=== PATIENT | female | born 1995 | race Two or more races ===

== ENCOUNTER 2020-04-19 08:29 | Emergency (ER) | payer MEDICAID, OTHER ==
[~2020-04-19] VITALS: Ht 162.6 cm; Wt 77.1 kg
[2020-04-19 08:53] VITALS: BP 147/96
== END 2020-04-19 10:07 | disposition home or self-care (01) ==
LOC: ER 08:29
DX: S33.5XXA Sprain of ligaments of lumbar spine, initial encounter (principal); S13.9XXA Sprain of joints and ligaments of unspecified parts of neck, initial encounter; S80.11XA Contusion of right lower leg, initial encounter; I10 Essential (primary) hypertension; V43.52XA Car driver injured in collision with other type car in traffic accident, initial encounter; Y93.89 Activity, other specified; Y92.89 Other specified places as the place of occurrence of the external cause; Y99.8 Other external cause status
CPT/HCPCS: 72040; 72100

== ENCOUNTER 2024-07-12 18:59 | Inpatient (IN) | payer MEDICAID ==
[~2024-07-12] VITALS: Ht 162.6 cm; Wt 69.1 kg
[2024-07-12] MEDS: HYDROcodone-ACET 10/325MG TAB PO ONE (20:28)
--- NOTE | 2024-07-12 20:30 | ED.PDOC ---
Back pain HPI HPI Comments PT BIBA CC LEFT ANKLE PAIN. PT STATED SHE FELL WHILE ROLLER SKATING AND LANDED WRONG ON HER ANKLE. PT HAS HX OF SPRAINING LEFT ANKLE AMBULATORY D/T INJURY, - LOC, - BLOOD THINNERS. PER EMS, PTs LEFT FOOT HAD NOTABLE BRUISING, NO NOTABLE DEFORMITY CURRENTLY SPLINTED. PT WAS GIVEN 4MG PO ZOFRAN ODT EN ROUTE. NO HX, MEDS, OR SURGERIES REPORTED. DENIES NUMBNESS AND WEAKNESS Chief Complaint: Lower Extremity Time Seen by MD: 19:07 Reviewed Notes: Nurses Notes, Medications, Allergies Allergies: Coded Allergies: Cephalexin (Verified Allergy, Unknown, 04/19/20) Information Source: Patient Mode of Arrival: EMS Past Medical History PAST MEDICAL HISTORY: HTN Surgical History: Denies all surgeries Social History Smoker: Non-Smoker Alcohol: Denies ETOH Use Drugs: Denies Drug Use Lives In: Home Constitutional: denies: chills, diaphoresis, fatigue, fever, malaise, sweats, weakness, others EENTM: denies: blurred vision, double vision, ear bleeding, ear discharge, ear drainage, ear pain, ear ringing, eye pain, eye redness, hearing loss, mouth pain, mouth swelling, nasal discharge, nose bleeding, nose congestion, nose pain, photophobia, tearing, throat pain, throat swelling, voice changes, others Respiratory: denies: cough, hemoptysis, orthopnea, SOB at rest, shortness of breath, SOB with excertion, stridor, wheezing, others Cardiovascular: denies: chest pain, dizzy spells, diaphoresis, Dyspnea on exertion, edema, irregular heart beat, left arm pain, lightheadedness, palpita tions, PND, syncope, others Gastrointestinal: denies: abdomen distended, abdominal pain, blood streaked rachel wels, constipated, diarrhea, dysphagia, difficulty swallowing, hematemesis, melena, nausea, poor appetite, poor fluid intake, rectal bleeding, rectal pain, vomiting, others Genitourinary: denies: abnormal vagina bleeding, burning, dyspareunia, dysuria, flank pain, frequency, hematuria, incontinence, pain, , vagina discharge, urgency, others Neurological: denies: dizziness, fainting, headache, left sided numbness, left sided weakness, numbness, paresthesia, pre-existing deficit, right sided numbness, right sided weakness, seizure, speech problems, tingling, tremors, weakness, others Musculoskeletal: reports: joint pain, joint swelling; denies: back pain, gout, muscle pain, muscle stiffness, neck pain, others Integumetry: reports: bruises; denies: change in color, change in hair/nails, dryness, laceration, lesions, lumps, rash, wounds, others Allergic/Immunocompromised: denies: Difficulty Healing, Frequent Infections, Hives, Itching, others Hematologic/Lymphatic: denies: anemia, blood clots, easy bleeding, easy bruising, swollen glands, others Endocrine: denies: excessive hunger, excessive sweating, excessive thirst, excessive urination, flushing, intolerance to cold, intolerance to heat, unexplained weight gain, unexplained weight loss, others Psychiatric: denies: anxiety, bipolar disorder, depression, hopeless, panic disorder, schizophrenia, sleepless, suicidal, others Physical Exam General Appearance: No Apparent Distress, Normal HEENT: Pharynx Normal Neck: Full Range of Motion, Non-Tender Respiratory: Lungs Clear, No Respiratory Distress, Normal Breath Sounds Cardiovascular: No Edema, No JVD, No Murmur, No Gallop, Normal Peripheral Pulses, Regular Rate/Rhythm Breast Exam: Deferred Gastrointestinal: No Organomegaly, Non Tender, No Pulsatile Mass, Normal Bowel Sounds, Soft Genitalia: Deferred Pelvic: Deferred Rectal: Deferred Extremities: Normal capillary refill, Normal inspection, Normal range of motion, Non-tender, No pedal edema Musculoskeletal : Location: Left Extremity Location: Ankle (MODERATE EDEMA MEDIAL MALLEOLUS SEVERE DISCOMFORT WITH RANGE OF MOTION. STRENGTH SENSORY MOTION INTACT. POSITIVE CAP REFILL LESS THAN 3 SECONDS POSITIVE PEDAL PULSE) Apperance: Normal Neurologic: Alert, cell attendant II-XII nml as Tested, No Motor Deficits, Normal Affect, Normal Mood, No Sensory Deficits Cerebellar Function: Normal Reflexes: Normal Skin: Dry, Normal Color, Warm Lymphatic: No Adenopathy Was a procedure done? Was a procedure done?: No Back Pain Differential Dx Differential Diagnosis: Fracture, Musculoskeletal Pain, Strain X-Ray, Labs, Meds, VS Vital Signs Date Time Temp Pulse Resp B/P (MAP) Pulse Ox O2 Delivery O2 Flow Rate FiO2 07/12/24 20:58 62 14 133/74 (93) 98 07/12/24 19:49 78 16 98 Room Air 07/12/24 19:10 98.1 98 16 110/60 (77) 98 98.1 07/12/24 19:10 98.1 78 16 110/60 (77) 98 98.1 Current Medications Medications (Trade) Dose Ordered Sig/Jacquelin Route Start Time Stop Time Status Last Admin Acetaminophen/ Hydrocodone Bitart ([place] 10/325MG Tab) 1 tab ONCE ONCE PO 07/12/24 20:30 07/12/24 20:31 DC 07/12/24 20:28 X-Ray, Labs, Meds, VS Comment CT LEFT ANKLE FINDINGS / IMPRESSION: There is dorsally displaced oblique Stauffer C fracture of distal fibula as well as displaced fracture of posterior malleolus. There is disruption of the ankle mortise with considerable lateral displacement of the talus with respect to the distal tibia. NORCO 10 MG P.O. GIVEN FOR THE PAIN AND ICE APPLIED PATIENT PLACED IN POSTERIOR LEG SPLINT TOLERATED WELL POSITIVE CSM BEFORE AND AFTER PROCEDURE. PEER-PEER REPORT WITH ORTHO SURGEON DR. CARRION ACCEPTED PATIENT A SURGICAL PATIENT FOR ADMISSION, PAIN CONTROL AND CONSULT IN THE MORNING FOR SURGERY. Time of 1ST Reevaluation: 19:30 Reevaluation 1ST: Unchanged Time of 2ND Reevaluation: 22:18 Reevaluation 2ND: Improved Patient Education/Counseling: Diagnosis, Treatment, Prognosis, Need For Follow Up Family Education/Counseling: No Family Present Departure 1 Departure Time of Disposition: 21:06 Impression: Primary Impression: Fracture of fibula, distal Qualified Codes: S82.831A - Other fracture of upper and lower end of right fibula, initial encounter for closed fracture Additional Impressions: Malleolar fracture Qualified Codes: S82.891A - Other fracture of right lower leg, initial encou nter for closed fracture Intractable pain Disposition: ADMITTED INPATIENT Condition: Stable Discharged With: Self Critical Care Note Critical Care Time?: No Stability Stability form required: DHARMESH Edmonds July 12, 2024 20:30
--- NOTE | 2024-07-12 20:39 | DVH ---
CLINICAL INDICATION: injury/pain TECHNIQUE: XY L ANKLE 3 VIEW Comparison: None FINDINGS / IMPRESSION: There is dorsally displaced oblique Stauffer C fracture of distal fibula as well as displaced fracture o f posterior malleolus. There is disruption of the ankle mortise with considerable lateral displaceme nt of the talus with respect to the distal tibia.
[2024-07-12] MEDS ORDERED: NITROGLYCERIN 0.4 MG SL TAB SL PRN (22:15)
[2024-07-12] MEDS ORDERED: MORPHINE SULFATE INJ 2 MG/ml SYRG IV PRN (22:15)
[2024-07-12] MEDS ORDERED: ACETAMINOPHEN 325 MG TAB PO PRN (22:15)
--- NOTE | 2024-07-12 22:16 | DVHHP2 ---
History of Present Illness Reason for Visit: Fracture of fibula, distal History of Present Illness Patient is a 29-year-old female with past medical history of hypertension who presented to [facility] ED with complaint of left ankle pain. Patient reports she landing on her left ankle with sustained injury. Patient has history of spraining left ankle, left foot had notable bruising, no deformity. Patient was seen and evaluated in the ED, laboratory data shows WBC 8.4, platelets 309, sodium 140, potassium 4.6, BUN 7, creatinine 0.90, glucose 102, blood pressure 133/74, heart rate 62, temperature 98.1 F, O2 saturation 98% on room air. Left ankle x-ray revealing dorsally displaced oblique Stauffer C fracture of distal fibula as well as displaced fracture of posterior malleolus; there is disruption of the ankle mortise with considerable lateral displacement of the talus with respect to the distal tibia. Please see medication orders section in the computer. On my assessment, patient denied chest pain, no headache, no dizziness, no diaphoresis, no numbness, weakness, no shortness of breath, no nausea, no vomiting, no fever, no chills. Patient was admitted for further evaluation and medical management. Past Medical History Hypertension Past Surgical History Denies all surgeries Family History Reviewed, noncontributory to the management of this case. Past Social History The patient lives at home, denies smoking, alcohol or illicit drugs abuse. Review of Systems Constitutional: No: Fever, Chills, Sweats, Weakness, Malaise, Other Eyes: No: Pain, Vision change, Conjunctivae inflammation, Eyelid inflammation, Other, Redness ENT: No: Ear pain, Ear discharge, Nose pain, Nose discharge, Nose congestion, Mouth pain, Mouth swelling, Throat pain, Throat swelling, Other Respiratory: No: Cough, Dry, Shortness of breath, SOB with excertion, Wheezing, Hemoptysis, Pleuritic Pain, Sputum, Wheezing, Other Cardiovascular: No: Chest Pain, Palpitations, Orthopnea, Paroxysmal Noc. Dyspnea, Edema, Lt Headedness, Other Gastrointestinal: No: Nausea, Vomiting, Abdominal Pain, Diarrhea, Constipation, Melena, Hematochezia, Other Genitourinary: No Dysuria, No Frequency, No Incontinence, No Hematuria, No Retention, No Other Musculoskeletal: other (joint pain, joint swelling.); No: neck pain, shoulder pain, arm pain, back pain, hand pain, leg pain, foot pain Skin: Bruising (Left ankle); No: Rash, Lesions, Jaundice, Other Neurological: No: Weakness, Numbness, Incoordination, Change in speech, Confusion, Seizures, Other Allergies: Coded Allergies: Cephalexin (Verified Allergy, Unknown, 04/19/20) Exam Vital Signs Vital Signs Date Time Temp Pulse Resp B/P (MAP) Pulse Ox O2 Delivery O2 Flow Rate FiO2 07/12/24 20:58 62 14 133/74 (93) 98 07/12/24 19:49 Room Air 07/12/24 19:10 98.1 98.1 General Appearance: Alert, Oriented X3, Cooperative, No acute distress HEENT: Atraumatic, PERRLA, EOMI, Mucous membr. moist/pink Respiratory: Clear to auscultation, Normal air movement Cardiovascular: Regular rate, Normal S1, Normal S2, No murmurs Abdominal: Normal bowel sounds, Soft, No tenderness, No hepatospenomegaly, No masses Extremities: No clubbing, No cyanosis, No edema, Normal pulses, Other (Left ankle swelling/tenderness) Skin: No rashes, No breakdown, No significant lesion Neuro: Normal speech, Normal tone, Sensation intact, Cranial nerves 3-12 NL, Reflexes 2+, Other (Unsteady gait) Psych/Mental Status: Mental status NL, Mood NL Labs/Xrays PATIENT: BEVERLEY TELLO ACCT: [id number] UNIT: [id number] : 1995 LOC: ER ROOM / BED: / AGE / SEX: 29 / F ADM STATUS: REG ER SERVICE 33 ORDERING PHYSICIAN: DHARMESH JACINTO PROCEDURE(s): LANKL - L ANKLE 3 VIEW REASON: injury/pain ORDER NUMBER(s): [id number], ACCESSION NUMBER(s): [id number] CLINICAL INDICATION: injury/pain TECHNIQUE: XY L ANKLE 3 VIEW Comparison: None FINDINGS/IMPRESSION: There is dorsally displaced oblique Stauffer C fracture of distal fibula as well as displaced fracture of posterior malleolus. There is disruption of the ankle mortise with considerable lateral displacement of the talus with respect to the distal tibia. Assessment/Plan Assessment/Plan Fracture of fibula, distal Other fracture of upper and lower end of right fibula, initial encounter for closed fracture Intractable pain Malleolar fracture Other fracture of right lower leg, initial encounter for closed fracture Plan 1. Admit to telemetry unit 2. Breathing treatment 3. Pain control management 4. Management of fluids and electrolytes 5. Consultation for orthopedic 6. Diagnostic tests left ankle x-ray 7. DVT prophylaxis-on Lovenox 8. Repeat labs CBC, CMP in a.m. 9. Continue with current medical management 10. Treatment plan discussed with patient and RN. Patient verbalized understanding. Plan discussed with: Patient, Other (RN) My Orders Orders - KATHY HECK DNP Procedure Category Date Status Time * Orthopedic Consult CONS 07/12/24 Verified 22:08 Complete Blood Count LAB 07/12/24 Verified 22:08 Basic Metabolic Panel LAB 07/12/24 Verified 22:08 Problem List: (1) Fracture of fibula, distal (2) Other fracture of upper and lower end of right fibula, initial encounter for closed fracture (3) Intractable pain (4) Malleolar fracture (5) Other fracture of right lower leg, initial encounter for closed fracture Date of Service: July 12, 2024 Billing Provider: KATHY HECK DNP Common Visit Codes: [id number] INP/OBS CARE (HIGH) KATHY HECK DNP July 12, 2024 22:16
[2024-07-12 22:48] LABS: Potassium 4.6 mmol/L (3.5-5.1); Sodium 140 mmol/L (136-145)
[2024-07-12 22:49] LABS: Anion Gap 7 (5-15); Calcium 9.6 mg/dL (8.7-10.4); Carbon Dioxide 26 mmol/L (20-31)
[2024-07-12 22:51] LABS: Basophils # (auto) 0 10 ^3/uL (0-0.2); Basophils % (auto) 0.3 % (0.0-2.0); Eosinophils # (auto) 0 10 ^3/uL (0-0.8); Mean Corpuscular Hgb Conc. 32.2 g/dL (32.0-36.0); Monocytes # (auto) 0.3 10 ^3/uL (0-1.3)
[2024-07-12 22:53] LABS: Eosinophils % (auto) 0.2 % (0.0-7.0); Hematocrit 41.3 % (36.0-46.0); Hemoglobin 13.3 g/dL (12.2-16.2); Lymphocytes # (auto) 1.7 10 ^3/uL (0.4-5.4); Lymphocytes % (auto) 20.8 % (10.0-50.0); Mean Corpuscular Hemoglobin 24.3 pg (28.0-32.0); Mean Corpuscular Volume 75.5 fL (80.0-100.0); Monocytes % (auto) 3.4 % (0.0-12.0); Neutrophils # (auto) 6.3 10 ^3/uL (1.6-8.6); Neutrophils % (auto) 75.3 % (37.0-80.0); Nucleated Red Blood Cells % 0.1 %; Platelet Count (auto) 309 10^3/uL (140-450); Red Blood Cells 5.47 10^6/uL (4.0-5.20); Red Cell Distribution Width 13.2 % (11.8-14.3); White Blood Cell 8.4 10^3/uL (4.4-10.8)
[2024-07-12 22:54] LABS: BUN/Creatinine Ratio 7.8 (10.0-20.0); Glucose 102 mg/dL (74-106)
[2024-07-12 22:57] LABS: Blood Urea Nitrogen 7 mg/dL (9-23); Chloride 107 mmol/L (98-107)
[2024-07-13] VITALS (9 sets, daily range): BP systolic 121–140; BP diastolic 72–85; PULSE 57–84; RESP 16–20; TEMP 97.9–98.9; O2SAT 97–100
[2024-07-13] MEDS: MORPHINE SULFATE INJ 2 MG/ml SYRG IV PRN (01:25)
[2024-07-13] MEDS: SODIUM CHLORIDE 0.9% 1,000 ML IV SCH (01:26)
[2024-07-13 07:15] LABS: Basophils # (auto) 0 10 ^3/uL (0-0.2); Basophils % (auto) 0.4 % (0.0-2.0); Eosinophils # (auto) 0 10 ^3/uL (0-0.8); Eosinophils % (auto) 0.7 % (0.0-7.0); Hematocrit 38.8 % (36.0-46.0); Hemoglobin 12.4 g/dL (12.2-16.2); Lymphocytes # (auto) 2.5 10 ^3/uL (0.4-5.4); Lymphocytes % (auto) 44.9 % (10.0-50.0); Mean Corpuscular Hemoglobin 24.2 pg (28.0-32.0); Mean Corpuscular Volume 75.5 fL (80.0-100.0); Monocytes # (auto) 0.3 10 ^3/uL (0-1.3); Monocytes % (auto) 5.2 % (0.0-12.0); Neutrophils # (auto) 2.7 10 ^3/uL (1.6-8.6); Neutrophils % (auto) 48.8 % (37.0-80.0); Nucleated Red Blood Cells % 0.1 %; Platelet Count (auto) 283 10^3/uL (140-450); Red Blood Cells 5.14 10^6/uL (4.0-5.20); Red Cell Distribution Width 13.3 % (11.8-14.3); White Blood Cell 5.6 10^3/uL (4.4-10.8)
[2024-07-13 07:25] LABS: INR 1.04 (0.9-1.15); Partial Thromboplastin Time 27.3 SEC (24.5-34.5)
[2024-07-13 07:31] LABS: Albumin 4.2 g/dL (3.2-4.8); Alkaline Phosphatase 58 U/L (46-116); Anion Gap 8 (5-15); Bilirubin, Total 0.8 mg/dL (0.2-1.0); Calcium 9.6 mg/dL (8.7-10.4); Carbon Dioxide 26 mmol/L (20-31); Glucose 96 mg/dL (74-106); Potassium 4.1 mmol/L (3.5-5.1); Sodium 141 mmol/L (136-145); Total Protein 6.3 g/dL (5.7-8.2)
[2024-07-13 07:32] LABS: Alanine Aminotransferase < 9 U/L (7-40); Aspartate Aminotransferase 13 U/L (13-40); Blood Urea Nitrogen 7 mg/dL (9-23); Chloride 107 mmol/L (98-107)
[2024-07-13] MEDS: ENOXAPARIN SOD 40 MG/0.4 ML SYRINGE SC SCH (08:16)
--- NOTE | 2024-07-13 14:17 | DVHPN2 ---
Subjective The patient is seen and examined at bedside. Still complain of pain in the ankle area Reviewed: Care Plan, H&P, Labs, Medications, Previous Orders, Radiology Changes from previous H/P or p: No Changes Eyes: No Pain, No Vision change, No Conjunctivae inflammation, No Eyelid inflammation, No Other, No Redness ENT: No Ear pain, No Ear discharge, No Nose pain, No Nose discharge, No Nose congestion, No Mouth pain, No Mouth swelling, No Throat pain, No Throat swelling, No Other Cardiovascular: No Chest Pain, No Palpitations, No Orthopnea, No Paroxysmal Noc. Dyspnea, No Edema, No Lt Headedness, No Other Respiratory: No Cough, No Dry, No Shortness of breath, No SOB with excertion, No Wheezing, No Hemoptysis, No Pleuritic Pain, No Sputum, No Other Gastrointestinal: No Nausea, No Vomiting, No Abdominal Pain, No Diarrhea, No Constipation, No Melena, No Hematochezia, No Other Genitourinary: No Dysuria, No Frequency, No Incontinence, No Hematuria, No Retention, No Other Musculoskeletal: other (joint pain, joint swelling.); No neck pain, No shoulder pain, No arm pain, No back pain, No hand pain, No leg pain, No foot pain Skin: No Rash, No Lesions, No Jaundice; Bruising (Left ankle); No Other Objective Vitals Vital Signs Date Time Temp Pulse Resp B/P (MAP) Pulse Ox O2 Delivery O2 Flow Rate FiO2 07/13/24 12:30 71 20 132/79 07/13/24 12:30 98.9 98 98.9 07/13/24 01:36 Room Air* 0 21 Intake/Output Intake and Output 07/13/24 07:00 Intake Total 400 ml Balance 400 ml Intake Oral 400 ml # Voids 1 General Appearance: Alert, Oriented X3, Cooperative, No acute distress HEENT: Atraumatic, PERRLA, EOMI, Mucous membr. moist/pink Neck: Supple Lungs: Clear to auscultation, Normal air movement Cardiovascular: Regular rate, Normal S1, Normal S2, No murmurs, Gallops, Rubs Abdomen: Normal bowel sounds, Soft, No tenderness Musculoskeletal: Weak motor strength LLE Psych/Mental Status: Mental status NL Medications Current Medications Medications Dose Ordered Sig/Jacquelin Route Start Time Stop Time Status Last Admin Dose Admin Sodium Chloride 1,000 ml @ 60 mls/hr [id number] IV 07/12/24 22:15 07/13/24 13:00 60 MLS/HR Acetaminophen/ Hydrocodone Bitart 1 tab Q4HP PRN PO 07/12/24 22:15 Ondansetron HCl 4 mg Q4HP PRN IV 07/12/24 22:15 Docusate Sodium 100 mg BIDPRN PRN PO 07/12/24 22:15 Enoxaparin Sodium 40 mg DAILY SC 07/13/24 10:00 07/13/24 10:00 40 MG Acetaminophen 650 mg Q6HP PRN PO 07/12/24 22:15 Morphine Sulfate 2 mg Q4HPRN PRN IV 07/12/24 22:15 07/13/24 12:30 2 MG Nitroglycerin 0.4 mg Q5MINP PRN SL 07/12/24 22:15 Morphine Sulfate 2 mg Q30M PRN IV 07/12/24 22:15 Laboratory Results Laboratory Tests 07/13/24 06:33 Chemistry Test 07/12/24 22:26 07/13/24 06:33 Calcium Level 9.6 mg/dL (8.7-10.4) 9.6 mg/dL (8.7-10.4) Albumin 4.2 g/dL (3.2-4.8) Total Protein 6.3 g/dL (5.7-8.2) Coagulation Test 07/13/24 06:33 Prothrombin Time 11.0 sec (9.3-11.8) Prothrombin Time INR 1.04 (0.9-1.15) Activated Partial Thromboplast Time 27.3 SEC (24.5-34.5) LFT Test 07/13/24 06:33 Alanine Aminotransferase (ALT) < 9 U/L (7-40) Alkaline Phosphatase 58 U/L (46-116) Aspartate Amino Transferase (AST) 13 U/L (13-40) Total Bilirubin 0.8 mg/dL (0.2-1.0) Labs and/or images reviewed: Labs reviewed by me Assessment/Plan Assessment/Plan Fracture of left fibula, distal Other fracture of upper and lower end of left fibula, initial encounter for closed fracture Intractable pain Malleolar fracture Plan Continuing current management Waiting for orthopedic surgeon to see the patient. Continuing with [place] and morphine for pain control. This medical document was created using an electronic medical record system with [employer] direct computerized dictation system. Although this document has been carefully reviewed, there may still be some phonetic and typographical errors. These areas are purely typographical due to imperfections of the software programs, and do not reflect any compromise in the patient's medical care. Plan discussed with: Patient Date of Service: July 13, 2024 Billing Provider: JUNIOR ZHAO MD Common Visit Codes: [id number] INP/OBS CARE(HIGH) JUNIOR ZHAO MD July 13, 2024 14:17
[2024-07-13 20:37] LABS: Urine Bacteria FEW /hpf (None Seen); Urine Blood Negative /uL (Negative); Urine Clarity Clear (Clear); Urine Color Light-Yellow (Yellow); Urine Mucus FEW (None Seen); Urine Protein, UAD Negative (Negative); Urine Specific Gravity 1.014 (1.001-1.035); Urine Squamous Epithelial Cell FEW /hpf (<5); Urine Urobilinogen 2 mg/dL (Negative); Urine WBC 1 /HPF (0-5); Urine pH 6.5 (5.0-9.0)
[2024-07-14] VITALS (8 sets, daily range): BP systolic 112–137; BP diastolic 67–81; PULSE 61–80; RESP 14–19; TEMP 97.9–99.5; O2SAT 93–100
[2024-07-14] MEDS: BUPIVACAINE HCL 50 ML ONE (12:05)
--- NOTE | 2024-07-14 13:17 | DVHPN2 ---
Subjective The patient is seen and examined at bedside. Still complain of pain in the ankle area Reviewed: Care Plan, H&P, Labs, Medications, Previous Orders, Radiology Changes from previous H/P or p: No Changes Eyes: No Pain, No Vision change, No Conjunctivae inflammation, No Eyelid inflammation, No Other, No Redness ENT: No Ear pain, No Ear discharge, No Nose pain, No Nose discharge, No Nose congestion, No Mouth pain, No Mouth swelling, No Throat pain, No Throat swelling, No Other Cardiovascular: No Chest Pain, No Palpitations, No Orthopnea, No Paroxysmal Noc. Dyspnea, No Edema, No Lt Headedness, No Other Respiratory: No Cough, No Dry, No Shortness of breath, No SOB with excertion, No Wheezing, No Hemoptysis, No Pleuritic Pain, No Sputum, No Other Gastrointestinal: No Nausea, No Vomiting, No Abdominal Pain, No Diarrhea, No Constipation, No Melena, No Hematochezia, No Other Genitourinary: No Dysuria, No Frequency, No Incontinence, No Hematuria, No Retention, No Other Musculoskeletal: other (joint pain, joint swelling.); No neck pain, No shoulder pain, No arm pain, No back pain, No hand pain, No leg pain, No foot pain Skin: No Rash, No Lesions, No Jaundice; Bruising (Left ankle); No Other Objective Vitals Vital Signs Date Time Temp Pulse Resp B/P (MAP) Pulse Ox O2 Delivery O2 Flow Rate FiO2 07/14/24 12:47 97.9 80 17 137/80 (99) 94 97.9 07/14/24 08:16 Room Air* 0 21 Intake/Output Intake and Output 07/14/24 07:00 Intake Total 1380 ml Balance 1380 ml Intake Oral 1380 ml # Voids 4 General Appearance: Alert, Oriented X3, Cooperative, No acute distress HEENT: Atraumatic, PERRLA, EOMI, Mucous membr. moist/pink Neck: Supple Lungs: Clear to auscultation, Normal air movement Cardiovascular: Regular rate, Normal S1, Normal S2, No murmurs, Gallops, Rubs Abdomen: Normal bowel sounds, Soft, No tenderness Musculoskeletal: Weak motor strength LLE Psych/Mental Status: Mental status NL Medications Current Medications Medications Dose Ordered Sig/Jacquelin Route Start Time Stop Time Status Last Admin Dose Admin Sodium Chloride 1,000 ml @ 60 mls/hr [id number] IV 07/12/24 22:15 07/13/24 13:00 60 MLS/HR Acetaminophen/ Hydrocodone Bitart 1 tab Q4HP PRN PO 07/12/24 22:15 Ondansetron HCl 4 mg Q4HP PRN IV 07/12/24 22:15 Docusate Sodium 100 mg BIDPRN PRN PO 07/12/24 22:15 Enoxaparin Sodium 40 mg DAILY SC 07/13/24 10:00 07/13/24 10:00 40 MG Acetaminophen 650 mg Q6HP PRN PO 07/12/24 22:15 Morphine Sulfate 2 mg Q4HPRN PRN IV 07/12/24 22:15 07/14/24 02:50 2 MG Nitroglycerin 0.4 mg Q5MINP PRN SL 07/12/24 22:15 Morphine Sulfate 2 mg Q30M PRN IV 07/12/24 22:15 Laboratory Results Laboratory Tests 07/13/24 06:33 Urinalysis Test 07/13/24 20:05 Urine Color Light-yellow (Yellow) Urine Clarity Clear (Clear) Urine pH 6.5 (5.0-9.0) Urine Specific [place] 1.014 (1.001-1.035) Urine Protein Negative (Negative) Urine Ketones Negative (Negative) Urine Blood Negative /uL (Negative) Urine Nitrite Negative (Negative) Urine Bilirubin Negative (Negative) Urine Urobilinogen 2 mg/dL (Negative) H Urine Leukocyte Esterase Negative /uL (Negative) Urine RBC <1 /hpf (0 - 4) Urine Microscopic WBC 1 /HPF (0-5) Urine Squamous Epithelial Cells Few /hpf (<5) Urine Bacteria Few /hpf (None Seen) H Urine Mucus Few (None Seen) Urine Glucose Normal mg/dL (Normal) Urine Test Negative (Negative) Labs and/or images reviewed: Labs reviewed by me Assessment/Plan Assessment/Plan Fracture of left fibula, distal Other fracture of upper and lower end of left fibula, initial encounter for closed fracture Intractable pain Malleolar fracture Plan Continuing current management Orthopedic surgeon input appreciated. Waiting for surgery. Continuing with [place] and morphine for pain control. This medical document was created using an electronic medical record system with [employer] direct computerized dictation system. Although this document has been carefully reviewed, there may still be some phonetic and typographical errors. These areas are purely typographical due to imperfections of the software programs, and do not reflect any compromise in the patient's medical care. Plan discussed with: Patient Date of Service: July 14, 2024 Billing Provider: JUNIOR ZHAO MD Common Visit Codes: [id number] INP/OBS CARE(HIGH) JUNIOR ZHAO MD July 14, 2024 13:17
--- NOTE | 2024-07-14 13:22 | DVHINCON2 ---
Date of service: July 13, 2024 Reason for Consultation Left ankle fracture History of Present Illness 29 yo F sp mechanical twisting and falling on her left side. Immediate pain/swelling/inability to bear weight on left leg. No cp/sob/abd pain/nausea/vomiting. Past Medical History Past Medical History Hypertension Past Surgical History Denies all surgeries Family History: Diabetes mellitus Grandmother FH: CHF (congestive heart failure) Grandmother Hypertension Grandmother Allergies: Coded Allergies: Cephalexin (Verified Allergy, Unknown, 04/19/20) Review of Systems 10 point ROS is neg except per HPI Vital Signs Vital Signs Date Time Temp Pulse Resp B/P (MAP) Pulse Ox O2 Delivery O2 Flow Rate FiO2 07/14/24 12:47 97.9 80 17 137/80 (99) 94 97.9 07/14/24 08:16 Room Air* 0 21 Physical Exam NAD AOX3 LLE: splint in place +ehl/fhl foot wwp Labs/Diagnostic Data Labs Test 07/13/24 20:05 07/13/24 06:33 Range/Units Urine Color Light-yellow Yellow Urine Clarity Clear Clear Urine pH 6.5 5.0-9.0 Urine Specific [place] 1.014 1.001-1.035 Urine Protein Negative Negative Urine Ketones Negative Negative Urine Blood Negative Negative /uL Urine Nitrite Negative Negative Urine Bilirubin Negative Negative Urine Urobilinogen 2 H Negative mg/dL Urine Leukocyte Esterase Negative Negative /uL Urine RBC <1 0 - 4 /hpf Urine Microscopic WBC 1 0-5 /HPF Urine Squamous Epithelial Cells Few <5 /hpf Urine Bacteria Few H None Seen /hpf Urine Mucus Few None Seen Urine Glucose Normal Normal mg/dL Urine Test Negative Negative White Blood Count 5.6 # 4.4-10.8 10^3/uL Red Blood Count 5.14 4.0-5.20 10^6/uL Hemoglobin 12.4 12.2-16.2 g/dL Hematocrit 38.8 36.0-46.0 % Mean Corpuscular Volume 75.5 L 80.0-100.0 fL Mean Corpuscular Hemoglobin 24.2 L 28.0-32.0 pg Mean Corpuscular Hemoglobin Concent 32.0 32.0-36.0 g/dL Red Cell Distribution Width 13.3 11.8-14.3 % Platelet Count 283 140-450 10^3/uL Mean Platelet Volume 8.2 6.9-10.8 fL Neutrophils (%) (Auto) 48.8 37.0-80.0 % Lymphocytes (%) (Auto) 44.9 10.0-50.0 % Monocytes (%) (Auto) 5.2 0.0-12.0 % Eosinophils (%) (Auto) 0.7 0.0-7.0 % Basophils (%) (Auto) 0.4 0.0-2.0 % Neutrophils # (Auto) 2.7 1.6-8.6 10 ^3/uL Lymphocytes # (Auto) 2.5 0.4-5.4 10 ^3/uL Monocytes # (Auto) 0.3 0-1.3 10 ^3/uL Eosinophils # (Auto) 0 0-0.8 10 ^3/uL Basophils # (Auto) 0 0-0.2 10 ^3/uL Nucleated Red Blood Cells 0.1 % Prothrombin Time 11.0 9.3-11.8 sec Prothrombin Time INR 1.04 0.9-1.15 Activated Partial Thromboplast Time 27.3 24.5-34.5 SEC Sodium Level 141 136-145 mmol/L Potassium Level 4.1 3.5-5.1 mmol/L Chloride Level 107 98-107 mmol/L Carbon Dioxide Level 26 20-31 mmol/L Anion Gap 8 5-15 Blood Urea Nitrogen 7 L 9-23 mg/dL Creatinine 0.88 0.550-1.02 mg/dL Glomerular Filtration Rate Calc 92 >90 mL/min BUN/Creatinine Ratio 8.0 L 10.0-20.0 Serum Glucose 96 74-106 mg/dL Calcium Level 9.6 8.7-10.4 mg/dL Total Bilirubin 0.8 0.2-1.0 mg/dL Aspartate Amino Transferase (AST) 13 13-40 U/L Alanine Aminotransferase (ALT) < 9 7-40 U/L Alkaline Phosphatase 58 46-116 U/L Total Protein 6.3 5.7-8.2 g/dL Albumin 4.2 3.2-4.8 g/dL Plan/Recommendation Left trimalleolar ankle fracture 1. I had a long and thorough discussion with patient regarding her condition. Questions for patient answered. Risks benefits options and alternatives reviewed. RIsks include but not exclusive to bleeding infection nerve injury hardware failure nonunion malunion chronic pain blood clots cardiac and pulmonary complications amputation and . Patient understands the morbidity and mortality of fractures. Patient wishes to proceed with surgery. 2. Plan for open reduction internal fixation of left ankle fracture 3. NPO/IVF 4. pain control Plan discussed with: Patient SID BRUNO MD July 14, 2024 13:22
[2024-07-14] MEDS: ceFAZolin 1GM/50ML 50 ML IV ONE (14:46)
--- NOTE | 2024-07-14 14:50 | DVHHP2 ---
History Allergies: Coded Allergies: Cephalexin (Verified Allergy, Unknown, 04/19/20) Physical Exam Vital Signs Vital Signs Date Time Temp Pulse Resp B/P (MAP) Pulse Ox O2 Delivery O2 Flow Rate FiO2 07/14/24 12:47 97.9 80 17 137/80 (99) 94 97.9 07/14/24 08:16 Room Air* 0 21 Impressions/Description Left trimalleolar ankle fracture 1. I had a long and thorough discussion with patient regarding her condition. Questions for patient answered. Risks benefits options and alternatives reviewed. RIsks include but not exclusive to bleeding infection nerve injury hardware failure nonunion malunion chronic pain blood clots cardiac and pulmonary complications amputation and . Patient understands the morbidity and mortality of fractures. Patient wishes to proceed with surgery. 2. Plan for open reduction internal fixation of left ankle fracture 3. NPO/IVF 4. pain control SID BRUNO MD July 14, 2024 14:50
[2024-07-14] MEDS: BUPIVACAINE 0.25% INJ 50ML VIAL ONE ×2 (15:24→16:26)
[2024-07-14] MEDS: ACETAMINOPHEN IV 1000 MG/100ML (10MG/ML) IV ONE (15:30)
[2024-07-14] MEDS: CEFEPIME 1GM/ 50ML 50 ML IV ONE (15:30)
[2024-07-14] MEDS: GABAPENTIN 300 MG CAP PO ONE (15:30)
[2024-07-14] MEDS: CELECOXIB 100 MG CAP PO ONE (15:30)
[2024-07-14] MEDS: CELECOXIB 100 MG CAP ONE (15:45)
[2024-07-14] MEDS: ACETAMINOPHEN IV 100 ML IV ONE (15:45)
[2024-07-14] MEDS: GABAPENTIN 300 MG CAP ONE (15:45)
[2024-07-14] MEDS ORDERED: KETAMINE 50mg/ML 1ml syringe ONE (15:48)
[2024-07-14] MEDS ORDERED: fentaNYL CITRATE 100 MCG/2 ML VL ONE (15:48)
[2024-07-14] MEDS ORDERED: LIDOCAINE 1% INJ PF 5ML AMP ONE (15:49)
[2024-07-14] MEDS ORDERED: KETOROLAC TROMETH 30 MG/ML 1ML VIAL ONE (15:49)
[2024-07-14] MEDS ORDERED: ONDANSETRON HCL 4 MG/2 ML VIAL ONE (15:49)
[2024-07-14] MEDS ORDERED: DexAMETHasone SOD PHOS 10MG/1ML VIAL INJ ONE (15:49)
[2024-07-14] MEDS ORDERED: GLYCOPYRROLATE 0.2 MG/ML 1ML VIAL ONE (15:49)
[2024-07-14] MEDS ORDERED: PROPOFOL 10 MG/ML 20 ML IV ONE (15:49)
[2024-07-14] MEDS ORDERED: EPINEPHrine HCL 1 MG/1 ML AMP ONE (15:52)
[2024-07-14] MEDS ORDERED: ceFAZolin 1GM VL ONE (15:56)
[2024-07-14] MEDS ORDERED: ePHEDrine SULFATE 50 MG/ML AMP ONE (16:26)
[2024-07-14] MEDS ORDERED: HYDROmorphone HCL 2 MG/ML VL/or syr IV PRN (17:00)
[2024-07-14] MEDS ORDERED: oxyCODONE HCL 5MG TAB PO PRN (17:00)
[2024-07-14] MEDS ORDERED: FLUMAZENIL 0.1 MG/ML INJ 10ML MDV IV PRN (17:00)
[2024-07-14] MEDS ORDERED: fentaNYL CITRATE 100 MCG/2 ML VL IV PRN (17:00)
[2024-07-14] MEDS ORDERED: hydrALAZINE HCL 20 MG/ML VL IV PRN (17:00)
[2024-07-14] MEDS ORDERED: ONDANSETRON HCL 4 MG/2 ML VIAL IV PRN (17:00)
[2024-07-14] MEDS ORDERED: ePHEDrine SULFATE 50 MG/ML AMP IV PRN (17:00)
[2024-07-14] MEDS ORDERED: NALOXONE HCL 0.4 MG/ML VIAL IV PRN (17:00)
--- NOTE | 2024-07-14 20:06 | DVH ---
XY L ANKLE 2 VIEW XRAY, HISTORY: ORIF LEFT ANKLE TECHNICAL DATA: 5 intraoperative fluoroscopic spot images were obtained of the ankle. COMPARISON: 07/12/2024 FINDINGS/IMPRESSION: C-arm fluoroscopic images were obtained for anatomic localization. The images are of low resolution b ut demonstrate instrumentation involving the ankle. Total fluoroscopy time was 18.3 seconds. ]Please see the operative report for further details.
--- NOTE | 2024-07-14 20:08 | DVH ---
C-ARM FLUOROSCOPY: PROCEDURE: Left ankle ORIF FLUOROSCOPY TIME: 18.3 seconds DAP: 0.31 mGy FINDINGS/IMPRESSION: Please refer to concurrent exam containing fluoroscopic images and surgical report for detailed findi ngs.
[2024-07-14] MEDS: ONDANSETRON HCL 4 MG/2 ML VIAL IV PRN (20:19)
[2024-07-14] MEDS: ceFAZolin 1GM/50ML 50 ML IV SCH (21:51)
[2024-07-14] MEDS: HYDROcodone-ACET 5/325MG TAB PO PRN (22:01)
[2024-07-15] VITALS (8 sets, daily range): BP systolic 95–122; BP diastolic 50–81; PULSE 47–74; RESP 18–20; TEMP 97.9–99.8; O2SAT 95–100
--- NOTE | 2024-07-15 09:34 | DVHOP2 ---
Operative Report - 2 Report Details Date: 07/14/24 Preop Diagnosis: Left trimalleolar ankle fracture Postop Diagnosis: Left trimalleolar ankle fracture Surgeon: Troy Ortiz MD Anesthesiologist: Carlos BECKFORD Anesthesia: General Implant: ITS Fibula plate Arhtrex syndesmoitc tightrope Consent: The patient was informed of the risks and benefits of the procedure. These include but are not limited to complications of anesthesia, postoperative infection, incomplete relief of symptoms, recurrence of symptoms, damage to blood vessels, nerves and tendons, deep venous thrombosis, pulmonary embolism and possible need for repeat surgery in the future. Estimated Blood Loss: 5 cc Name of Procedure Performed 1. open reduction internal fixation of right triamalleolar ankle fracture without fixation of posterior lip 2. intraoperative fluoroscopy Procedure Details Procedure Details: GROSS FINDINGS: Include a comminuted fracture involving the medial, posterior and lateral malleolus as well as synesmotic widening HISTORY OF PRESENT ILLNESS: Risks/benefits/options and alternatives were discussed in length. Risks associated with anesthesia, infection, damage to nerves and blood vessels, and bleeding or blood clots. Problems after ankle fracture surgery include ankle joint stiffness, weakness, need for further surgery and arthritis. Possible complications after ankle fracture surgery include infection and problems with healing. PROCEDURE: After all potential complications and risks as well as risks and benefits of the above-mentioned procedure was discussed at length with the patient and family, informed consent was obtained. The lower extremity was then confirmed with the operating surgeon, the patient, the nursing staff and Department of Anesthesia. The patient was then transferred to preoperative area in the Operative Suite and placed on the operating room table in supine position. At this time, the anesthesia was performed. All bony prominences were well padded at this time. A nonsterile tourniquet was placed on the left upper thigh of the patient. This was then removed and the right lower extremity was sterilely prepped and draped in the usual sterile fashion. The right lower extremity was then elevated and exsanguinated using Esmarch and tourniquet was then placed to 250 mmHg. Next, after all bony and soft tissue landmarks were identified, a 6 cm longitudinal incision was made directly over the lateral mal fracture on the Left ankle. A sharp dissection was carefully taken down to the level of bone taking care to protect the neurovascular structures. Once the bone was reached, the fractured site was identified. The bony ends were then opened and divided of all hematoma as well as excess periosteum within the fracture site. For the lateral side she had a posterior comminution with a distal diagonal fracture. With manual traction and manipulation with bone reduction clamps we were able to reduce patient fracture. I placed a lag screw to help hold fracture reduced. Intraoperative fluoroscopy confirmed reduction. A Fibula plate was then selected for instrumentation with nonlocking/locking through the nail to reduce posterior butterfly fragment. Next Fluorsocpy was used to visualize the hardware placement as well as the fracture reduction appeared to be in good anatomic position, all hardware was in good position. There was lateralization of the so we placed a tightrope based on fluoro tightening. Again, Fluoro scan was brought in to confirm placement of the screws. They were in good overall position and there was no lateralization of the joint. At this time, each wound was copiously irrigated and suctioned dry. The wounds were then closed using #2-0 Vicryl suture in subcutaneous fashion followed by 3-0 nylon on the skin. A sterile dressing was applied consistent with Adaptic, 4x4s, Kerlix, and Webril. An ankle splint was then placed on the right lower extremity. The patient was transferred back to the [facility] and to the Postanesthetic Care Unit. The patient tolerated the procedure well. There were no complications. Postoperative Plan: Condition Good Disposition Still a Patient TROY ORTIZ MD July 15, 2024 09:34
--- NOTE | 2024-07-15 13:56 | DVHPN2 ---
Subjective The patient is seen and examined at bedside. Still complain of pain in the ankle area. Postop day 1. Patient able to ambulate with crutches Reviewed: Care Plan, H&P, Labs, Medications, Previous Orders, Radiology Changes from previous H/P or p: No Changes Eyes: No Pain, No Vision change, No Conjunctivae inflammation, No Eyelid inflammation, No Other, No Redness ENT: No Ear pain, No Ear discharge, No Nose pain, No Nose discharge, No Nose congestion, No Mouth pain, No Mouth swelling, No Throat pain, No Throat swelling, No Other Cardiovascular: No Chest Pain, No Palpitations, No Orthopnea, No Paroxysmal Noc. Dyspnea, No Edema, No Lt Headedness, No Other Respiratory: No Cough, No Dry, No Shortness of breath, No SOB with excertion, No Wheezing, No Hemoptysis, No Pleuritic Pain, No Sputum, No Other Gastrointestinal: No Nausea, No Vomiting, No Abdominal Pain, No Diarrhea, No Constipation, No Melena, No Hematochezia, No Other Genitourinary: No Dysuria, No Frequency, No Incontinence, No Hematuria, No Retention, No Other Musculoskeletal: other (joint pain, joint swelling.); No neck pain, No shoulder pain, No arm pain, No back pain, No hand pain, No leg pain, No foot pain Skin: No Rash, No Lesions, No Jaundice; Bruising (Left ankle); No Other Objective Vitals Vital Signs Date Time Temp Pulse Resp B/P (MAP) Pulse Ox O2 Delivery O2 Flow Rate FiO2 07/15/24 08:53 98.6 65 18 95/50 (65) 96 98.6 07/15/24 08:00 Room Air* 0 21 Intake/Output Intake and Output 07/15/24 07:00 Intake Total 340 ml Balance 340 ml Intake Oral 240 ml IV Total 100 ml # Voids 6 General Appearance: Alert, Oriented X3, Cooperative, No acute distress HEENT: Atraumatic, PERRLA, EOMI, Mucous membr. moist/pink Neck: Supple Lungs: Clear to auscultation, Normal air movement Cardiovascular: Regular rate, Normal S1, Normal S2, No murmurs, Gallops, Rubs Abdomen: Normal bowel sounds, Soft, No tenderness Musculoskeletal: Weak motor strength LLE Psych/Mental Status: Mental status NL Medications Current Medications Medications Dose Ordered Sig/Jacquelin Route Start Time Stop Time Status Last Admin Dose Admin Sodium Chloride 1,000 ml @ 60 mls/hr [id number] IV 07/12/24 22:15 07/14/24 21:52 60 MLS/HR Acetaminophen/ Hydrocodone Bitart 1 tab Q4HP PRN PO 07/12/24 22:15 07/14/24 22:01 1 TAB Ondansetron HCl 4 mg Q4HP PRN IV 07/12/24 22:15 07/14/24 20:19 4 MG Docusate Sodium 100 mg BIDPRN PRN PO 07/12/24 22:15 Enoxaparin Sodium 40 mg DAILY SC 07/13/24 10:00 07/15/24 10:00 40 MG Acetaminophen 650 mg Q6HP PRN PO 07/12/24 22:15 Morphine Sulfate 2 mg Q4HPRN PRN IV 07/12/24 22:15 07/14/24 20:23 2 MG Nitroglycerin 0.4 mg Q5MINP PRN SL 07/12/24 22:15 Morphine Sulfate 2 mg Q30M PRN IV 07/12/24 22:15 Cefazolin Sodium 50 ml @ 100 mls/hr Q8HR IV 07/14/24 22:00 07/15/24 14:29 07/15/24 06:19 100 MLS/HR Laboratory Results Laboratory Tests 07/13/24 06:33 Urinalysis Test 07/13/24 20:05 Urine Color Light-yellow (Yellow) Urine Clarity Clear (Clear) Urine pH 6.5 (5.0-9.0) Urine Specific [place] 1.014 (1.001-1.035) Urine Protein Negative (Negative) Urine Ketones Negative (Negative) Urine Blood Negative /uL (Negative) Urine Nitrite Negative (Negative) Urine Bilirubin Negative (Negative) Urine Urobilinogen 2 mg/dL (Negative) H Urine Leukocyte Esterase Negative /uL (Negative) Urine RBC <1 /hpf (0 - 4) Urine Microscopic WBC 1 /HPF (0-5) Urine Squamous Epithelial Cells Few /hpf (<5) Urine Bacteria Few /hpf (None Seen) H Urine Mucus Few (None Seen) Urine Glucose Normal mg/dL (Normal) Urine Test Negative (Negative) Labs and/or images reviewed: Labs reviewed by me Assessment/Plan Assessment/Plan Fracture of left fibula, distal Other fracture of upper and lower end of left fibula, initial encounter for closed fracture Intractable pain Malleolar fracture Plan Continuing current management Status post surgery postop day one Continuing with Roann and morphine for pain control. Discharge planning when cleared by orthopedic surgeon This medical document was created using an electronic medical record system with [employer] direct computerized dictation system. Although this document has been carefully reviewed, there may still be some phonetic and typographical errors. These areas are purely typographical due to imperfections of the software programs, and do not reflect any compromise in the patient's medical care. Plan discussed with: Patient Date of Service: July 15, 2024 Billing Provider: JUNIOR ZHAO MD Common Visit Codes: [id number] INP/OBS CARE(HIGH) JUNIOR ZHAO MD July 15, 2024 13:56
[2024-07-15] MEDS: DOCUSATE SOD 100 MG CAP PO PRN (15:57)
[2024-07-16] VITALS (10 sets, daily range): BP systolic 100–124; BP diastolic 53–78; PULSE 55–71; RESP 15–20; TEMP 97.7–98.2; O2SAT 94–100
[2024-07-16] MEDS ORDERED: HYDR-4902 PO (11:37)
--- NOTE | 2024-07-16 11:50 | DVHDS2 ---
Discharge Summary Date of Admission July 12, 2024 at 22:08 Date of Discharge: July 16, 2024 Labs/Diagnostic Data: Laboratory Results Test 07/13/24 20:05 07/13/24 06:33 Urine Color Light-yellow (Yellow) Urine Clarity Clear (Clear) Urine pH 6.5 (5.0-9.0) Urine Specific [place] 1.014 (1.001-1.035) Urine Protein Negative (Negative) Urine Ketones Negative (Negative) Urine Blood Negative /uL (Negative) Urine Nitrite Negative (Negative) Urine Bilirubin Negative (Negative) Urine Urobilinogen 2 mg/dL (Negative) Urine Leukocyte Esterase Negative /uL (Negative) Urine RBC <1 /hpf (0 - 4) Urine Microscopic WBC 1 /HPF (0-5) Urine Squamous Epithelial Cells Few /hpf (<5) Urine Bacteria Few /hpf (None Seen) Urine Mucus Few (None Seen) Urine Glucose Normal mg/dL (Normal) Urine Test Negative (Negative) White Blood Count 5.6 10^3/uL (4.4-10.8) Red Blood Count 5.14 10^6/uL (4.0-5.20) Hemoglobin 12.4 g/dL (12.2-16.2) Hematocrit 38.8 % (36.0-46.0) Mean Corpuscular Volume 75.5 fL (80.0-100.0) Mean Corpuscular Hemoglobin 24.2 pg (28.0-32.0) Mean Corpuscular Hemoglobin Concent 32.0 g/dL (32.0-36.0) Red Cell Distribution Width 13.3 % (11.8-14.3) Platelet Count 283 10^3/uL (140-450) Mean Platelet Volume 8.2 fL (6.9-10.8) Neutrophils (%) (Auto) 48.8 % (37.0-80.0) Lymphocytes (%) (Auto) 44.9 % (10.0-50.0) Monocytes (%) (Auto) 5.2 % (0.0-12.0) Eosinophils (%) (Auto) 0.7 % (0.0-7.0) Basophils (%) (Auto) 0.4 % (0.0-2.0) Neutrophils # (Auto) 2.7 10 ^3/uL (1.6-8.6) Lymphocytes # (Auto) 2.5 10 ^3/uL (0.4-5.4) Monocytes # (Auto) 0.3 10 ^3/uL (0-1.3) Eosinophils # (Auto) 0 10 ^3/uL (0-0.8) Basophils # (Auto) 0 10 ^3/uL (0-0.2) Nucleated Red Blood Cells 0.1 % Prothrombin Time 11.0 sec (9.3-11.8) Prothrombin Time INR 1.04 (0.9-1.15) Activated Partial Thromboplast Time 27.3 SEC (24.5-34.5) Sodium Level 141 mmol/L (136-145) Potassium Level 4.1 mmol/L (3.5-5.1) Chloride Level 107 mmol/L (98-107) Carbon Dioxide Level 26 mmol/L (20-31) Anion Gap 8 (5-15) Blood Urea Nitrogen 7 mg/dL (9-23) Creatinine 0.88 mg/dL (0.550-1.02) Glomerular Filtration Rate Calc 92 mL/min (>90) BUN/Creatinine Ratio 8.0 (10.0-20.0) Serum Glucose 96 mg/dL (74-106) Calcium Level 9.6 mg/dL (8.7-10.4) Total Bilirubin 0.8 mg/dL (0.2-1.0) Aspartate Amino Transferase (AST) 13 U/L (13-40) Alanine Aminotransferase (ALT) < 9 U/L (7-40) Alkaline Phosphatase 58 U/L (46-116) Total Protein 6.3 g/dL (5.7-8.2) Albumin 4.2 g/dL (3.2-4.8) Other Laboratory Tests 07/13/24 06:33 Condition at Discharge: Good Final Diagnosis/Problems List Left trimalleolar ankle fracture Discharge Disposition: Home Discharge Instruct/Medications Diet: Regular Activity: Light activity Follow Up/Referral: pcp 1-2 weeks orthopedic surgeon, Dr Ortiz per schedule Medications: [place] 5/325 one tab q4h PRN for pain Discharge Statement: "Patient was advised to return to the ER or call 911 if any headaches, dizziness, shortness of breath, chest pain, abdominal pain, bleeding, fevers, or worsening of medical condition. Patient was counseled about treatment plan, medications, possible side effects, patientverbalized understanding. All questions were answered to the best of my ability. This discharge took greater then 30 minutes in planning, reviewing documentation, counseling the patient, and discussing with other team members." ASSESSMENT ASSESSMENT Assessment Left trimalleolar ankle fracture JUNIOR ZHAO MD July 16, 2024 11:50
--- NOTE | 2024-07-16 17:38 | DVHPN2 ---
Subjective The patient is seen and examined at bedside. Still complain of pain in the ankle area. Postop day 2. Patient able to ambulate with crutches Reviewed: Care Plan, H&P, Labs, Medications, Previous Orders, Radiology Changes from previous H/P or p: No Changes Eyes: No Pain, No Vision change, No Conjunctivae inflammation, No Eyelid inflammation, No Other, No Redness ENT: No Ear pain, No Ear discharge, No Nose pain, No Nose discharge, No Nose congestion, No Mouth pain, No Mouth swelling, No Throat pain, No Throat swelling, No Other Cardiovascular: No Chest Pain, No Palpitations, No Orthopnea, No Paroxysmal Noc. Dyspnea, No Edema, No Lt Headedness, No Other Respiratory: No Cough, No Dry, No Shortness of breath, No SOB with excertion, No Wheezing, No Hemoptysis, No Pleuritic Pain, No Sputum, No Other Gastrointestinal: No Nausea, No Vomiting, No Abdominal Pain, No Diarrhea, No Constipation, No Melena, No Hematochezia, No Other Genitourinary: No Dysuria, No Frequency, No Incontinence, No Hematuria, No Retention, No Other Musculoskeletal: other (joint pain, joint swelling.); No neck pain, No shoulder pain, No arm pain, No back pain, No hand pain, No leg pain, No foot pain Skin: No Rash, No Lesions, No Jaundice; Bruising (Left ankle); No Other Objective Vitals Vital Signs Date Time Temp Pulse Resp B/P (MAP) Pulse Ox O2 Delivery O2 Flow Rate FiO2 07/16/24 16:57 97.8 57 15 124/69 (87) 99 97.8 07/16/24 08:00 Room Air* 0 21 Intake/Output Intake and Output 07/16/24 07:00 Intake Total 810 ml Balance 810 ml Intake Oral 810 ml # Voids 1 General Appearance: Alert, Oriented X3, Cooperative, No acute distress HEENT: Atraumatic, PERRLA, EOMI, Mucous membr. moist/pink Neck: Supple Lungs: Clear to auscultation, Normal air movement Cardiovascular: Regular rate, Normal S1, Normal S2, No murmurs, Gallops, Rubs Abdomen: Normal bowel sounds, Soft, No tenderness Musculoskeletal: Weak motor strength LLE Psych/Mental Status: Mental status NL Medications Current Medications Medications Dose Ordered Sig/Jacquelin Route Start Time Stop Time Status Last Admin Dose Admin Sodium Chloride 1,000 ml @ 60 mls/hr [id number] IV 07/12/24 22:15 07/16/24 09:45 60 MLS/HR Acetaminophen/ Hydrocodone Bitart 1 tab Q4HP PRN PO 07/12/24 22:15 07/16/24 09:44 1 TAB Ondansetron HCl 4 mg Q4HP PRN IV 07/12/24 22:15 07/14/24 20:19 4 MG Docusate Sodium 100 mg BIDPRN PRN PO 07/12/24 22:15 07/16/24 09:44 100 MG Enoxaparin Sodium 40 mg DAILY SC 07/13/24 10:00 07/16/24 09:46 40 MG Acetaminophen 650 mg Q6HP PRN PO 07/12/24 22:15 Morphine Sulfate 2 mg Q4HPRN PRN IV 07/12/24 22:15 07/16/24 04:29 2 MG Nitroglycerin 0.4 mg Q5MINP PRN SL 07/12/24 22:15 Morphine Sulfate 2 mg Q30M PRN IV 07/12/24 22:15 Laboratory Results Laboratory Tests 07/13/24 06:33 Urinalysis Test 07/13/24 20:05 Urine Color Light-yellow (Yellow) Urine Clarity Clear (Clear) Urine pH 6.5 (5.0-9.0) Urine Specific [place] 1.014 (1.001-1.035) Urine Protein Negative (Negative) Urine Ketones Negative (Negative) Urine Blood Negative /uL (Negative) Urine Nitrite Negative (Negative) Urine Bilirubin Negative (Negative) Urine Urobilinogen 2 mg/dL (Negative) H Urine Leukocyte Esterase Negative /uL (Negative) Urine RBC <1 /hpf (0 - 4) Urine Microscopic WBC 1 /HPF (0-5) Urine Squamous Epithelial Cells Few /hpf (<5) Urine Bacteria Few /hpf (None Seen) H Urine Mucus Few (None Seen) Urine Glucose Normal mg/dL (Normal) Urine Test Negative (Negative) Labs and/or images reviewed: Labs reviewed by me Assessment/Plan Assessment/Plan Fracture of left fibula, distal Other fracture of upper and lower end of left fibula, initial encounter for closed fracture Intractable pain Malleolar fracture Plan Continuing current management Status post surgery postop day one Continuing with [place] and morphine for pain control. Discharge planning when cleared by orthopedic surgeon This medical document was created using an electronic medical record system with [employer] direct computerized dictation system. Although this document has been carefully reviewed, there may still be some phonetic and typographical errors. These areas are purely typographical due to imperfections of the software programs, and do not reflect any compromise in the patient's medical care. Plan discussed with: Patient My Orders Orders - JUNIOR ZHAO MD Procedure Category Date Status Time Discharge DISCHARGE 07/16/24 Transmitted 11:41 Date of Service: July 16, 2024 Billing Provider: JUNIOR ZHAO MD Common Visit Codes: [id number] INP/OBS CARE(HIGH) JUNIOR ZHAO MD July 16, 2024 17:38
[2024-07-17 01:00] VITALS: BP 122/75; PULSE 60; RESP 18; O2SAT 98
[2024-07-17 05:00] VITALS: BP 126/78; PULSE 63; RESP 18; O2SAT 97
[2024-07-17 08:00] VITALS: PULSE 57
[2024-07-17 09:00] VITALS: BP 130/78; PULSE 56; RESP 19; TEMP 97.9; O2SAT 98
--- NOTE | 2024-07-17 11:22 | DVHDS2 ---
Discharge Summary Date of Admission July 12, 2024 at 22:08 Date of Discharge: July 17, 2024 Admitting Diagnosis Fracture of left fibula, distal Other fracture of upper and lower end of left fibula, initial encounter for closed fracture Intractable pain Malleolar fracture Labs/Diagnostic Data: Laboratory Results Test 07/13/24 20:05 07/13/24 06:33 Urine Color Light-yellow (Yellow) Urine Clarity Clear (Clear) Urine pH 6.5 (5.0-9.0) Urine Specific [place] 1.014 (1.001-1.035) Urine Protein Negative (Negative) Urine Ketones Negative (Negative) Urine Blood Negative /uL (Negative) Urine Nitrite Negative (Negative) Urine Bilirubin Negative (Negative) Urine Urobilinogen 2 mg/dL (Negative) Urine Leukocyte Esterase Negative /uL (Negative) Urine RBC <1 /hpf (0 - 4) Urine Microscopic WBC 1 /HPF (0-5) Urine Squamous Epithelial Cells Few /hpf (<5) Urine Bacteria Few /hpf (None Seen) Urine Mucus Few (None Seen) Urine Glucose Normal mg/dL (Normal) Urine Test Negative (Negative) White Blood Count 5.6 10^3/uL (4.4-10.8) Red Blood Count 5.14 10^6/uL (4.0-5.20) Hemoglobin 12.4 g/dL (12.2-16.2) Hematocrit 38.8 % (36.0-46.0) Mean Corpuscular Volume 75.5 fL (80.0-100.0) Mean Corpuscular Hemoglobin 24.2 pg (28.0-32.0) Mean Corpuscular Hemoglobin Concent 32.0 g/dL (32.0-36.0) Red Cell Distribution Width 13.3 % (11.8-14.3) Platelet Count 283 10^3/uL (140-450) Mean Platelet Volume 8.2 fL (6.9-10.8) Neutrophils (%) (Auto) 48.8 % (37.0-80.0) Lymphocytes (%) (Auto) 44.9 % (10.0-50.0) Monocytes (%) (Auto) 5.2 % (0.0-12.0) Eosinophils (%) (Auto) 0.7 % (0.0-7.0) Basophils (%) (Auto) 0.4 % (0.0-2.0) Neutrophils # (Auto) 2.7 10 ^3/uL (1.6-8.6) Lymphocytes # (Auto) 2.5 10 ^3/uL (0.4-5.4) Monocytes # (Auto) 0.3 10 ^3/uL (0-1.3) Eosinophils # (Auto) 0 10 ^3/uL (0-0.8) Basophils # (Auto) 0 10 ^3/uL (0-0.2) Nucleated Red Blood Cells 0.1 % Prothrombin Time 11.0 sec (9.3-11.8) Prothrombin Time INR 1.04 (0.9-1.15) Activated Partial Thromboplast Time 27.3 SEC (24.5-34.5) Sodium Level 141 mmol/L (136-145) Potassium Level 4.1 mmol/L (3.5-5.1) Chloride Level 107 mmol/L (98-107) Carbon Dioxide Level 26 mmol/L (20-31) Anion Gap 8 (5-15) Blood Urea Nitrogen 7 mg/dL (9-23) Creatinine 0.88 mg/dL (0.550-1.02) Glomerular Filtration Rate Calc 92 mL/min (>90) BUN/Creatinine Ratio 8.0 (10.0-20.0) Serum Glucose 96 mg/dL (74-106) Calcium Level 9.6 mg/dL (8.7-10.4) Total Bilirubin 0.8 mg/dL (0.2-1.0) Aspartate Amino Transferase (AST) 13 U/L (13-40) Alanine Aminotransferase (ALT) < 9 U/L (7-40) Alkaline Phosphatase 58 U/L (46-116) Total Protein 6.3 g/dL (5.7-8.2) Albumin 4.2 g/dL (3.2-4.8) Other Laboratory Tests 07/13/24 06:33 Brief Hx & Hospital Course: This is a 29 years old female with past medical history hypertension come to [facility] with chief complaint of left ankle pain. Patient reports that she fell and landing on her left ankle with sustained injury. The patient said when she bear weight on the left leg the ankle hurt really bad. The patient was evaluated in emergency department. Her left ankle x-ray showed dorsally displaced oblique Stauffer C fracture of the distal fibula as well as displaced fracture of posterior malleolus, there is disruption of the ankle mortise with considerable lateral displacement of the talus with resprect to the distal tibia. The patient subsequently had an ORIF by orthopedic surgeon. The patient able to ambulate with crutches. Today orthopedic surgeon service cleared the patient for discharge. I am going to discharge the patient home. Advised the patient to follow up with orthopedic surgeon in 1-2 weeks. Follow up with primary care physician 1-2 weeks. Activity as tolerated. Diet per home diet. Physical exam: HEENT: Normocephalic atraumatic pupils equal react to light and accommodation. Extraocular muscles intact, conjunctiva pink, oropharynx moist, no thrush, no exudate. Lymphatic: No lymphadenopathy Cardiovascular exam: S1, S2 was heard. No murmurs, rubs, gallops Lung: Clear on auscultation bilaterally, no wheeze, rale, rhonchi. GI: Abdominal soft, nondistended, nontenderness, positive bowel sounds. Extremity: No crepitus, cyanosis, edema. Pedal pulses present bilateral. Full range of motion. Skin: Normal turgor, no rash. Psych: Alert, oriented x3. Neurology: No focal deficits, cranial nerve II to XII grossly intact. This medical document was created using an electronic medical record system with [employer] direct computerized dictation system. Although this document has been carefully reviewed, there may still be some phonetic and typographical errors. These areas are purely typographical due to imperfections of the software programs, and do not reflect any compromise in the patient's medical care. Condition at Discharge: Stable Final Diagnosis/Problems List Left trimalleolar ankle fracture Fracture of left fibula, distal Other fracture of upper and lower end of left fibula, initial encounter for closed fracture Intractable pain Discharge Disposition: Home Discharge Instruct/Medications Diet: Regular Activity: Light activity Follow Up/Referral: pcp 1-2 weeks orthopedic surgeon, Dr Ortiz per schedule Medications: [place] 5/325 one tab q4h PRN for pain Discharge Statement: "Patient was advised to return to the ER or call 911 if any headaches, dizziness, shortness of breath, chest pain, abdominal pain, bleeding, fevers, or worsening of medical condition. Patient was counseled about treatment plan, medications, possible side effects, patientverbalized understanding. All questions were answered to the best of my ability. This discharge took greater then 30 minutes in planning, reviewing documentation, counseling the patient, and discussing with other team members." ASSESSMENT ASSESSMENT Assessment Left trimalleolar ankle fracture Date of Service: July 17, 2024 Billing Provider: JUNIOR ZHAO MD Common Visit Codes: 69324-SZH/OBS DISCH DAY >30min JUNIOR ZHAO MD July 17, 2024 11:22
[2024-07-17 13:00] VITALS: BP 135/84; PULSE 62; RESP 18; TEMP 97.9; O2SAT 98
--- NOTE | 2024-07-17 13:31 | DVHPN2 ---
Progress Note Progress Note Progress Note ORIF Left Ankle Fracture Procedure: Open Reduction Internal Fixation (ORIF) Left ankle --- Subjective: Patient is recovering well post-operatively. No new complaints of pain, drainage, or fever. Pain is well controlled on current medication regimen. --- Objective: Patient is in splint with bulky dressing in place. No active drainage noted. Dressing is clean, dry, and intact with no saturation or bleeding. Left foot is warm and well-perfused, capillary refill <2 seconds. Toes are pink and moving, sensation intact distally. --- Assessment: S/P ORIF of left ankle fracture Stable postoperative course No signs of wound complication or infection Plan: Discharge today with instructions: Keep splint clean and dry Elevate limb to reduce swelling Remain non-weight bearing (NWB) on the left lower extremity w/ crutches (please provide crutches) Ice as needed Cleared to discharge with following recs: RECOMMENDATION FOR HOSPITAL TEAM: Discharge home with Keflex 500MG QID X 7 DAYS Pain meds([place]) x 14 days Aspirin 81 mg bid x [address], avoid activity that may cause pain luisito left ankle Outpatient orthopedic follow-up in 2 weeks for wound check and progression plan Provide DME (crutches or walker) and discharge education Plan discussed with: Patient, Other (bedside nurse) Visit Coding Surgery Date of Service if different f: July 17, 2024 Billing Provider: PHILLIP HAYWOOD Surgery Visit Codes: 04103 - INP CONSULT <55 MIN PHILLIP HAYWOOD July 17, 2024 13:31
== END 2024-07-17 18:13 | disposition home or self-care (01) | DRG 313 ==
LOC: EDBD 18:59 → ER 18:59 → OVERFLOW 22:08 → TELE-CENTR 22:16
PROVIDERS: ADMIT Internal Medicine; ATTEND Internal Medicine
PROC: 0QSK04Z Reposition Left Fibula with Internal Fixation Device, Open Approach (ICD-10-PCS; principal; 2024-07-14 15:51)
DX: S82.852A Displaced trimalleolar fracture of left lower leg, initial encounter for closed fracture (principal); I10 Essential (primary) hypertension; Z83.3 Family history of diabetes mellitus; Z82.49 Family history of ischemic heart disease and other diseases of the circulatory system; Z88.1 Allergy status to other antibiotic agents; W18.39XA Other fall on same level, initial encounter; Y93.89 Activity, other specified; Y92.89 Other specified places as the place of occurrence of the external cause; Y99.8 Other external cause status
CPT/HCPCS: 36415; 73600; 73610; 76000; 80048; 80053; 81001; 81025; 85025; 85610; 85730; 86850; 86900; 86901; 97110; 97116; 97163; G0378; J0131; J0171; J0690; J1100; J1885; J2405; J2704; J3490

== ENCOUNTER 2024-09-26 17:36 | Emergency (ER) | payer MEDICAID ==
[~2024-09-26] VITALS: Ht 162.6 cm; Wt 60.0 kg
[~2024-09-26 17:36] MED LIST: HYDR-4902 PO
--- NOTE | 2024-09-26 19:03 | ED.PDOC ---
History of Present Illness HPI Comments This is a 29-year-old female with past surgical history of status post internal fixation of left ankle on 07/14/2024 presented to the ED with a chief complaint of left ankle pain for last 2 days prior to this visit. The patient states that 2 days ago she put wrong steps and about to fall and after that she felt pain and swelling in the left ankle and later swelling resolved. She had a surgery in the left ankle for fracture of the left ankle [address] Ortiz. She denies fever, chills, shortness of breath, increased pain and swelling in the left ankle, dysuria, hematuria. Chief Complaint: Lower Extremity Time Seen by MD: 17:56 Allergies: Coded Allergies: Cephalexin (Verified Allergy, Unknown, 04/19/20) Home Meds Active Scripts Hydrocodone-Acetaminophen (Hydrocodone Bitartrate/AC 5-325 mg) 1 Tab Tab, 1 TAB PO Q4HP PRN, #20 TAB Prov:JUNIOR ZHAO MD 07/16/24 Information Source: Patient Mode of Arrival: Ambulatory Severity: Mild Timing: Days Duration: Since onset Prehospital treatment: None Past Medical History Past Medical History (Other): Fracture of left ankle Surgical History: Denies all surgeries Surgical History (Other): Internal fixation of left ankle DAIRY MANAGER History: Denies all DAIRY MANAGER Hx Family History Family History: Reviewed,noncontributory to illness Social History Smoker: Non-Smoker Alcohol: Denies ETOH Use Drugs: Denies Drug Use Lives In: Home Constitutional: denies: chills, diaphoresis, fatigue, fever, malaise, sweats, weakness, others EENTM: denies: blurred vision, double vision, ear bleeding, ear discharge, ear drainage, ear pain, ear ringing, eye pain, eye redness, hearing loss, mouth pain, mouth swelling, nasal discharge, nose bleeding, nose congestion, nose pain, photophobia, tearing, throat pain, throat swelling, voice changes, others Respiratory: denies: cough, hemoptysis, orthopnea, SOB at rest, shortness of breath, SOB with excertion, stridor, wheezing, others Cardiovascular: denies: chest pain, dizzy spells, diaphoresis, Dyspnea on exertion, edema, irregular heart beat, left arm pain, lightheadedness, palpitations, PND, syncope, others Gastrointestinal: denies: abdomen distended, abdominal pain, blood streaked bowels, constipated, diarrhea, dysphagia, difficulty swallowing, hematemesis, melena, nausea, poor appetite, poor fluid intake, rectal bleeding, rectal pain, vomiting, others Neurological: denies: dizziness, fainting, headache, left sided numbness, left sided weakness, numbness, paresthesia, pre-existing deficit, right sided numbness, right sided weakness, seizure, speech problems, tingling, tremors, weakness, others Musculoskeletal: reports: others (Left ankle pain) Integumetry: denies: bruises, change in color, change in hair/nails, dryness, laceration, lesions, lumps, rash, wounds, others Hematologic/Lymphatic: denies: anemia, blood clots, easy bleeding, easy bruising, swollen glands, others Endocrine: denies: excessive hunger, excessive sweating, excessive thirst, excessive urination, flushing, intolerance to cold, intolerance to heat, unexplained weight gain, unexplained weight loss, others Psychiatric: denies: anxiety, bipolar disorder, depression, hopeless, panic disorder, schizophrenia, sleepless, suicidal, others Physical Exam General Appearance: Normal HEENT: Normal ENT Inspection, Pharynx Normal, TMs Normal Neck: Full Range of Motion, Non-Tender, Normal, Normal Inspection Respiratory: Chest Non-Tender, Lungs Clear, No Accessory Muscle Use, No R espiratory Distress, Normal Breath Sounds Cardiovascular: No Edema, No JVD, No Murmur, No Gallop, Normal Peripheral Pulses, Regular Rate/Rhythm Breast Exam: Deferred Gastrointestinal: No Organomegaly, Non Tender, No Pulsatile Mass, Normal Bowel Sounds, Soft Genitalia: Deferred Pelvic: Deferred Rectal: Deferred Extremities: Other (Redness and mild tenderness in the left ankle) Neurologic: Other (Use crutches) Cerebellar Function: NOT DONE Reflexes: NOT DONE Skin: NOT DONE Peripheral Pulses: 2+ carotid (R), 2+ carotid (L), 2+ femoral (R), 2+ femoral (L), 2+ dorsalis pedis (R), 2+ dorsalis pedis (L), 2+ Radial (R), 2+ Radial (L), 2+ Brachial (R), 2+ Brachial (L) Lymphatic: NOT DONE Was a procedure done? Was a procedure done?: No Differential Dx Considerations may include: Ankle sprain, dislocation, fracture of the left ankle X-Ray, Labs, Meds, VS Vital Signs Date Time Temp Pulse Resp B/P (MAP) Pulse Ox O2 Delivery O2 Flow Rate FiO2 09/26/24 17:37 98.4 87 18 137/84 98 98.4 Lab Test 09/26/24 19:44 Range/Units Urine Test Negative Negative Images Reviewed?: Images reviewed and evaluated by me Time of 1ST Reevaluation: 21:00 Reevaluation 1ST: Unchanged Patient Education/Counseling: Diagnosis, Treatment Family Education/Counseling: Diagnosis, Treatment Comments This is a 29-year-old female with past surgical history of status post internal fixation of left ankle on 07/14/2024 presented to the ED with a chief complaint of left ankle pain for last 2 days after a near fall incident while twisting her ankle. Physical exam demonstrated redness and mild tenderness in the left ankle. Preliminary review of the x-ray and also compared with the previous x-ray done in August there is no sign of acute fracture or dislocation. To immobilize the joint and nonweightbearing recommended short-leg cast and use crutches for walking. Recommended pain medication as needed for the pain, and follow up with Orthopedics Dr. Ortiz as soon as possible after this ED visit SEPSIS Sepsis Screen Date sepsis recognized/suspect: Sep 26, 2024 Time Sepsis recognized/suspect: 1740 Recent Procedure: No On Antibiotic Therapy: No Respiratory Rate >20: No Heart Rate >90: No Temp<36 C (96.8 F) or >38.3 C: No SBP <90 or MAP <65 mmHG: No New Acute Mental Status Change: No Is the patient on CPAP, BIPAP,: No Physician Orders L Ankle 3 View (09/26/24 18:09) Vital Signs Date Time Temp Pulse Resp B/P (MAP) Pulse Ox O2 Delivery O2 Flow Rate FiO2 09/26/24 17:37 98.4 87 18 137/84 98 98.4 Departure 1 Departure Time of Disposition: 21:22 Impression: Primary Impression: Ankle sprain Disposition: 01 HOME / SELF CARE / HOMELESS Condition: Fair Critical Care Note Critical Care Time?: No Stability Stability form required: No PEPITO MILLER RESIDENT Sep 26, 2024 19:03
--- NOTE | 2024-09-26 21:34 | DVH ---
CLINICAL INDICATION: History of fall, status post internal fixation of left ankle TECHNIQUE: 3 radiographic views of the right ankle were obtained. Comparison: XY L ANKLE 2 VIEW XRAY on DOS: 07/14/24, XY L ANKLE 3 VIEW on DOS: 07/12/24 FINDINGS/IMPRESSION: The patient is status post internal fixation of the distal fibular fracture and surgery of the lume n on the medial aspect of the left ankle.
[2024-09-26 22:36] VITALS: BP 103/62; PULSE 70; RESP 16; TEMP 98; O2SAT 100
== END 2024-09-26 23:00 | disposition home or self-care (01) ==
LOC: ER 17:36
DX: S93.492A Sprain of other ligament of left ankle, initial encounter (principal); Z88.1 Allergy status to other antibiotic agents; W18.39XA Other fall on same level, initial encounter; Y93.01 Activity, walking, marching and hiking; Y92.89 Other specified places as the place of occurrence of the external cause; Y99.8 Other external cause status
CPT/HCPCS: 29515; 73610; 81025